=== PATIENT | female | born 1950 | race Caucasian/White ===

== ENCOUNTER 2016-12-08 18:29 | Emergency (ER) | payer OTHER ==
[2016-12-08 19:42] VITALS: BP 163/88
[2016-12-08] MEDS ORDERED: Lidocaine 1% MPF* 2 ML VIAL INJ ONE (21:35)
--- NOTE | 2016-12-08 21:36 | UC ---
Laceration HPI - HPI Summary HPI Summary: WAS GARDENING TODAY AROUND 4:30PM AND PULLED ON A TREE BRANCH WHICH BROKE OFF AND STRUCK PT IN THE FACE LACERATING LEFT LOWER LIP. NO LOC. UP TO DATE TETANUS WITHIN THE PAST 5 YEARS. - History Of Current Complaint Chief Complaint: UCLaceration Stated Complaint: LIP LAC Time Seen by Provider: 12/08/16 21:35 Hx Obtained From: Patient Laceration Location: Face - LOWER LIP Onset/Duration: Sudden Onset, Lasting Hours, Still Present Severity: Mild Pain Intensity: 2 Pain Scale Used: 0-10 Numeric Aggravating Factors: Movement - Allergies/Home Medications Allergies/Adverse Reactions: Allergies Allergy/AdvReac Type Severity Reaction Status Date / Time Penicillins Allergy Unknown Unknown Verified 12/08/16 19:42 Reaction Details Erythromycin AdvReac Intermediate GI Upset Verified 12/08/16 19:42 HYDROCHLORATHIAZIDE Allergy Severe Rash Uncoded 10/22/14 13:12 Home Medications: Home Medications Ascorbic Acid TAB* [Vitamin C TAB*] 1,000 mg PO DAILY 12/08/16 [History Confirmed 12/08/16] Calcium Carbonate-Vitamin D [Calcium 600 + D 600-400 mg-Unit] 1 tab PO 12/08/16 [History] Multiple Vitamins W/ Minerals [Multivitamin Adults] 1 tab PO DAILY 12/08/16 [ History Confirmed 12/08/16] PMH/Surg Hx/FS Hx/Imm Hx Cardiovascular History: Hypertension - Surgical History Surgical History: Yes Surgery Procedure, Year, and Place[place] [facility] [place]EN[place] CYST REMOV[place] FROM RIGHT BREAST [facility] . [id number] - Family History Known Family History: Positive: Hypertension - Social History Alcohol Use: Occasionally Substance Use Type: None Smoking Status (MU): Former Smoker Type: Cigarettes Amount Used/How Often: 1 PPD - Immunization History Most Recent Tetanus Shot: <5 YEARS ( OF 12/08/16) Review of Systems Constitutional: Negative Skin: Other - LACERATION LEFT LOWER LIP Respiratory: Negative Cardiovascular: Negative Gastrointestinal: Negative All Other Systems Reviewed And Are Negative: Yes Physical Exam Triage Information Reviewed: Yes Appearance: Well-Appearing, No Pain Distress, Well-Nourished Vital Signs: Initial Vital Signs Temp 99.8 F 12/08/16 19:39 Pulse 73 12/08/16 19:39 Resp 16 12/08/16 19:39 BP 163/88 12/08/16 19:39 Pulse Ox 97 12/08/16 19:39 Vital Signs Reviewed: Yes Eyes: Positive: Conjunctiva Clear ENT: Positive: Hearing grossly normal Neck: Positive: Supple Respiratory: Positive: No respiratory distress, No accessory muscle use Cardiovascular: Positive: Pulses Normal Abdomen Description: Positive: Soft Musculoskeletal: Positive: No Edema Neurological: Positive: Alert Psychological: Positive: Age Appropriate Behavior Skin: Positive: Other - 7MM LINEAR LACERATION LEFT LOWER LIP DRY VERMILION. NOT CROSSING THROUGH VERMILION BORDER Laceration Repair - Laceration Repair 1 Description: Linear Laceration Size After Repair: Length (cm) - 0.7CM, Width (mm) - 0MM, Depth (mm) - 2MM Modified For Repair: No Type Injection: Local Anesthesia Used: 1.0% Lido Cleansing Completed Via Routine Prep: Yes Closure Material: Sutures - 2 SIMPLE INTERRUPTED Closure Method: Single Layer Suture Of: Skin Suture Type: Other - 5-0 SURGIPRO Laceration Course/Dx - Differential Dx - Laceration/Wound Provider Diagnoses: LACERATION REPAIR LEFT LOWER LIP Discharge - Discharge Plan Patient Education Materials: Laceration (ED) Referrals: Papa Banuelos MD [Primary Care Provider] - 2 Weeks (MONITOR YOUR BP AND FOLLOW -UP WITH YOUR PCP)
== END 2016-12-08 22:13 | disposition home or self-care (01) ==
LOC: UCEAST 18:29
DX: Z87.891 Personal history of nicotine dependence (principal); S01.511A Laceration without foreign body of lip, initial encounter; W22.8XXA Striking against or struck by other objects, initial encounter; Y93.H2 Activity, gardening and landscaping; Y92.017 Garden or yard in single-family (private) house as the place of occurrence of the external cause; Y99.9 Unspecified external cause status; I10 Essential (primary) hypertension
CPT/HCPCS: 12011; 99211; G0463

== ENCOUNTER 2016-12-14 15:20 | Emergency (ER) | payer OTHER ==
[2016-12-14 15:30] VITALS: BP 148/88
--- NOTE | 2016-12-14 17:52 | UC ---
HPI Wound/Suture Re-check - HPI Summary HPI Summary: TWO SUTURES PLACED IN LEFT LOWER LIP ONE WEEK AGO; HERE TO HAVE SUTURES REMOVED. - History Of Current Complaint Chief Complaint: UCLaceration Stated Complaint: STITCHES REMOVED Time Seen by Provider: 12/14/16 15:31 Hx Obtained From: Patient Onset/Duration: Gradual Onset, Lasting Days, Still Present Severity: Mild Pain Intensity: 0 Pain Scale Used: 0-10 Numeric - Allergies/Home Medications Allergies/Adverse Reactions: Allergies Allergy/AdvReac Type Severity Reaction Status Date / Time Penicillins Allergy Unknown Unknown Verified 12/08/16 19:42 Reaction Details Erythromycin AdvReac Intermediate GI Upset Verified 12/08/16 19:42 HYDROCHLORATHIAZIDE Allergy Severe Rash Uncoded 10/22/14 13:12 PMH/Surg Hx/FS Hx/Imm Hx Previously Healthy: Yes - Surgical History Surgical History: Yes Surgery Procedure, Year, and Place: HYSTERECTOMY [facility]. BENIGN CYST REMOVED FROM RIGHT BREAST [facility]. [id number] - Family History Known Family History: Positive: Hypertension - Social History Occupation: Retired Lives: With Family Alcohol Use: Occasionally Substance Use Type: None Smoking Status (MU): Former Smoker Type: Cigarettes Amount Used/How Often: 1 PPD - Immunization History Most Recent Tetanus Shot: <5 YEARS ( OF 12/08/16) Review of Systems Constitutional: Negative Skin: Other - TWO SUTURES, LEFT LOWER LIP Eyes: Negative ENT: Negative Respiratory: Negative Cardiovascular: Negative Gastrointestinal: Negative Genitourinary: Negative Motor: Negative Neurovascular: Negative Musculoskeletal: Negative Neurological: Negative Psychological: Negative All Other Systems Reviewed And Are Negative: Yes Physical Exam Triage Information Reviewed: Yes Appearance: Well-Appearing, No Pain Distress, Well-Nourished Vital Signs: Initial Vital Signs Temp 97.8 F 12/14/16 15:28 Pulse 83 12/14/16 15:28 Resp 18 12/14/16 15:28 BP 148/88 12/14/16 15:28 Pulse Ox 100 12/14/16 15:28 Vital Signs Reviewed: Yes Eye Exam: Normal ENT Exam: Normal ENT: Positive: Normal ENT inspection Dental Exam: Normal Neck exam: Normal Neck: Positive: Supple, Nontender, No Lymphadenopathy Respiratory Exam: Normal Respiratory: Positive: Chest non-tender, Lungs clear, Normal breath sounds, No respiratory distress, No accessory muscle use Cardiovascular Exam: Normal Cardiovascular: Positive: RRR, No Murmur, Pulses Normal, Brisk Capillary Refill Abdominal Exam: Normal Musculoskeletal Exam: Normal Musculoskeletal: Positive: Strength Intact, ROM Intact Neurological Exam: Normal Psychological Exam: Normal Skin: Positive: Other Course/Dx - Differential Dx - Laceration/Wound Differential Diagnoses: Suture Removal Provider Diagnoses: SUTURE REMOVAL OF TWO SUTURES, LEFT LOWER LIP Discharge - Discharge Plan Condition: Stable Disposition: HOME Referrals: Papa Banuelos MD [Primary Care Provider] -
== END 2016-12-14 15:50 | disposition home or self-care (01) ==
LOC: UCEAST 15:20
DX: Z48.02 Encounter for removal of sutures (principal); Z88.1 Allergy status to other antibiotic agents; Z88.0 Allergy status to penicillin; Z87.891 Personal history of nicotine dependence

== ENCOUNTER 2016-12-25 10:55 | Day surgery (SDC) | payer OTHER ==
[~2016-12-25 10:55] MED LIST: Acetaminophen TAB* 325 MG PO PRN; Buffered Lidocaine 0.9% SYRIN* 5 ML/SYR SYRINGE INTRADERM ONE
[2016-12-25] MEDS ORDERED: Midazolam* 1 MG/ML 2 ML VIAL (2 MG) ONE ×2 (11:13→11:32)
[2016-12-25] MEDS ORDERED: Tetracaine 0.5% OPTH.SOL 4 ML* 1 DROP BTL ONE (11:37)
[2016-12-25] MEDS ORDERED: Neomycin/Polymy/Dex OPHTH.OIN* 3.5 GM ONE (11:37)
[2016-12-25] MEDS ORDERED: Flurbiprofen 0.03% OPTH.SOL* 2.5 ML BTL ONE (11:37)
[2016-12-25] MEDS ORDERED: Lidocaine 1% MPF* 2 ML VIAL ONE (11:37)
[2016-12-25] MEDS ORDERED: Cyclopentolate 1% OPTH.SOL* 2 ML BTL ONE (11:37)
[2016-12-25] MEDS ORDERED: Phenylephrine 2.5% OPTH.SOL* 2 ML BTL ONE (11:37)
[2016-12-25] MEDS ORDERED: Tropicamide 1% OPTH.SOL* BTL ONE (11:37)
[2016-12-25] MEDS ORDERED: BSS OPTH.SOL* BTL ONE (11:38)
[2016-12-25] MEDS ORDERED: Buffered Lidocaine 0.9% SYRIN* 5 ML/SYR SYRINGE ONE (11:38)
[2016-12-25] MEDS ORDERED: fentaNYL* 50 MCG/ML 2 ML VIAL (100 MCG VIAL) ONE (11:46)
[2016-12-25 12:17] VITALS: BP 138/75
--- NOTE | 2016-12-26 02:29 | OP ---
DATE OF OPERATION: 12/25/16 - [facility] DATE OF : 54 SURGEON: Janes Carballo MD HOOP EXPANDER: None. ANESTHESIA: Topical with intravenous sedation. PRE-OP DIAGNOSIS: Cataract with astigmatism, left eye. POST-OP DIAGNOSIS: Cataract with astigmatism, left eye. OPERATIVE PROCEDURE: Phacoemulsification and cataract extraction with posterior chamber intraocular Toric lens implant, left eye. COMPLICATIONS: None. BLOOD LOSS: None. DESCRIPTION OF PROCEDURE: The patient was seen preoperatively in the holding area where she was placed in an upright position. A meagan was made at the 6 o' clock position of the conjunctiva near the limbus in the left eye. The patient was subsequently brought to the operating room and given a small amount of intravenous sedation. A drop of Tetracaine was placed in her left eye. The patient was prepped and draped in the usual sterile fashion for ophthalmic surgery and attention was directed to the left eye where a speculum was placed. A paracentesis was created at the 5 o'clock position and 0.1 cc of 1% preservative-free lidocaine was injected into the anterior chamber followed by DisCoVisc. The eye was digitally stabilized with a 2.75 mm keratome, was used to create a triplanar clear corneal incision at the 3 o'clock position. A continuous curvilinear capsulorrhexis was created using a cystotome and Utrata forceps. BSS on a cannula was used to hydrodissect the lens from the capsule. Phacoemulsification was performed in a iwbknj-tay-esabspo technique to create 4 fragments which were removed. Residual cortical material was removed with irrigation and aspiration. Healon was used to inflate the capsular bag. A Dupont marker and marking pen were used to meagan to 94 degrees axis on the limbus. A [id number] 18.0 diopter lens was folded and inserted into the capsular bag. It was dilated to the appropriate axial alignment using the Sinskey hook. The lens was held in this position using the Sinskey hook with the paracentesis while irrigation and aspiration was performed to remove the viscoelastic from the eye. The Sinskey hook was removed. BSS on a cannula was used to hydrate the corneal stroma and seal the wound. At the end of the case, the lens was centered staple and axially aligned. The eye pressure appeared normal and the wound was water tight. The speculum was removed and topical Maxitrol ointment was placed in the surface of the eye. The eye was closed, patched, and shielded and the patient was sent to the recovery room in stable condition with postoperative instructions and followup appointment given. [id number]/[facility] #: [id number] MTDD
== END 2016-12-25 12:16 | disposition home or self-care (01) ==
LOC: OREAST 10:55
PROVIDERS: ATTEND Ophthalmology
DX: H25.12 Age-related nuclear cataract, left eye (principal); I10 Essential (primary) hypertension
CPT/HCPCS: A9270-GY; J2250; J3010; V2787

== ENCOUNTER 2017-01-01 08:35 | Day surgery (SDC) | payer OTHER ==
[2017-01-01] MEDS ORDERED: Midazolam* 1 MG/ML 5 ML VIAL (5 MG) ONE (10:38)
[2017-01-01] MEDS ORDERED: fentaNYL* 50 MCG/ML 2 ML VIAL (100 MCG VIAL) ONE (10:38)
[2017-01-01] MEDS ORDERED: Acetaminophen TAB* 325 MG ONE (11:08)
[2017-01-01 11:15] VITALS: BP 139/81
[2017-01-01] MEDS ORDERED: Cyclopentolate 1% OPTH.SOL* 2 ML BTL ONE (11:55)
[2017-01-01] MEDS ORDERED: Flurbiprofen 0.03% OPTH.SOL* 2.5 ML BTL ONE (11:56)
[2017-01-01] MEDS ORDERED: Buffered Lidocaine 0.9% SYRIN* 5 ML/SYR SYRINGE ONE (11:56)
[2017-01-01] MEDS ORDERED: Phenylephrine 2.5% OPTH.SOL* 2 ML BTL ONE (11:56)
[2017-01-01] MEDS ORDERED: Tetracaine 0.5% OPTH.SOL 4 ML* 1 DROP BTL ONE (11:56)
[2017-01-01] MEDS ORDERED: Lidocaine 1% MPF* 2 ML VIAL ONE (11:56)
[2017-01-01] MEDS ORDERED: Neomycin/Polymy/Dex OPHTH.OIN* 3.5 GM ONE (11:56)
[2017-01-01] MEDS ORDERED: Tropicamide 1% OPTH.SOL* BTL ONE (11:56)
--- NOTE | 2017-01-01 14:58 | OP ---
OPERATIVE REPORT: DATE OF OPERATION: 01/01/17 DATE OF : 54 SURGEON: Janes Carballo MD EDGE PLUGGER: None. ANESTHESIA: Topical with intravenous sedation. PRE-OP DIAGNOSIS: Cataract, right eye, with astigmatism. POST-OP DIAGNOSIS: Cataract, right eye, with astigmatism. OPERATIVE PROCEDURE: Phacoemulsification and cataract extraction with posterior chamber intraocular Toric lens implant, right eye. COMPLICATIONS: None. BLOOD LOSS: None. DESCRIPTION OF PROCEDURE: The patient was seen preoperatively in the holding area, where she was po sitioned upright. A meagan was made at the 6 o'clock position of the conjunctiva near the limbus in t he right eye. The patient was subsequently brought to the operating room, where she received a smal l amount of intravenous sedation and a drop of tetracaine into her right eye. She was prepped and d raped in the usual sterile fashion for ophthalmic surgery and attention was directed to the right ey e, where a speculum was placed. A paracentesis was created at the 11 o'clock position and 0.1 cc of 1% preservative-free lidocaine was injected into the anterior chamber followed by DisCoVisc. The e ye was digitally stabilized where a 2.75-mm keratome was used to create a triplanar clear corneal in cision at the 9 o'clock position. A continuous curvilinear capsulorrhexis was created using a cysto tome and Utrata forceps. BSS on a cannula was used to hydrodissect the lens from the capsule. Phac oemulsification was performed in a [id number] technique to create 4 fragments, which were re moved. Residual cortical material was removed with irrigation and aspiration. Healon was used to i nflate the capsular bag. A Dupont marker was used to meagan the 79-degree axis to the limbus. An SN6A T8 14.5 diopter lens was folded and inserted into the capsular bag. It was rotated to the appropria te axial alignment using the Sinskey hook and stabilized there using the Sinskey hook for the parace ntesis site. Irrigation and aspiration was performed to remove viscoelastic from the eye. The Sins gil hook was removed. The lens remained in proper position. BSS on a cannula was used to hydrate th e corneal stroma and seal the wound. At the end of the case, the pupil was round. The lens was cent ered, stable, and axially aligned. The eye pressure appeared normal. The wound was watertight. Th e speculum was removed and topical Maxitrol ointment was placed on the surface of the eye. The eye was closed, patched, and shielded and the patient was sent to recovery room in stable condition with postoperative instructions and followup appointment given. [id number] #: [id number]
== END 2017-01-01 11:24 | disposition home or self-care (01) ==
LOC: OREAST 08:35
PROVIDERS: ATTEND Ophthalmology
DX: H25.11 Age-related nuclear cataract, right eye (principal); I10 Essential (primary) hypertension
CPT/HCPCS: A9270-GY; J2250; J3010; V2787